=== PATIENT | female | born 1980 | race Caucasian/White ===

== ENCOUNTER 2017-07-11 15:35 | Outpatient (CLI) | payer SELFPAY ==
[2017-07-11] MEDS ORDERED: LACTATED RINGERS 500 ML IV ONE (20:30)
[2017-07-11 20:36] VITALS: BP 121/67
[2017-07-11 20:55] LABS: Bacteria,Urine 1+ /HPF (Negative); Bilirubin,Urine NEG (Negative); Blood,Urine NEG (Negative); Color,Urine Straw (Yellow); Nitrite,Urine NEG (Negative); Protein,Urine <15 mg/dL mg/dL (Negative); RBC,Urine < 1.0 /HPF (0.0-6.0); Urobilinogen,Urine < 2.0 mg/dL (<2.0)
[2017-07-11 20:56] LABS: WBC,Urine < 1.0 /HPF (0.0-6.0)
--- NOTE | 2017-07-11 22:26 | Ultrasound Report ---
FINAL REPORT EXAM: US OB > = 14 WEEKS FETUS HISTORY: NO CARE TECHNIQUE: Transabdominal sonography of the pelvis. PRIORS: None. FINDINGS: There is a single, live intrauterine in cephalic presentation. heart motion is detected and 4 chamber heart visualized. Placenta is located anterior and there is no evidence of previa. Cervical length 3.6 cm. Biometric data obtained and corresponds to an estimated gestational age of 31 weeks 4 days and an ultrasound estimated date of delivery of 08 September 2017 (it should be noted that an examination performed earlier in may yield more accurate dating). No gross anomalies are noted, including brain, heart, stomach, kidneys and urinary bladder. spine and cord insertion not adequately visualized. Amniotic fluid index is 15 cm. BPD: 7.72 cm HC: 29.01 cm AC: 26.97 cm FL: 6.21 cm Remainder of the uterus and adnexa grossly unremarkable. IMPRESSION: 1. Single, live intrauterine .
== END 2017-07-11 21:35 | disposition home or self-care (01) ==
LOC: EDSTATUS 17:45 → TRG 17:53
PROVIDERS: ATTEND Obstetrics & Gynecology
DX: O09.523 Supervision of elderly multigravida, third trimester (principal); O47.03 False labor before 37 completed weeks of gestation, third trimester; Z3A.31 31 weeks gestation of pregnancy
CPT/HCPCS: 59025; 76805; 81001

== ENCOUNTER 2017-08-27 07:53 | Inpatient (IN) | payer SELFPAY ==
[2017-08-27] MEDS ORDERED: PITOCin/NS 20 UNIT/1000ML DRIP 20 UNITS/1,000 ML BAG IV SCH (08:00)
[2017-08-27] MEDS ORDERED: PITOCin/NS 20 UNIT/1000ML DRIP 20,000 MILLIUNITS/1,000 ML BAG IV ONE ×2 (08:01→10:03)
[2017-08-27 08:52] LABS: Hematocrit 44.6 % (30.3-42.9); Hemoglobin 14.6 gm/dl (10.1-14.3); Mean Corpuscular Volume 91 fl (79-97); Red Blood Count 4.87 M/mm3 (3.65-5.03)
[2017-08-27 08:53] LABS: Basophils # (Auto) 0.1 K/mm3 (0.0-0.1); Basophils % (Auto) 0.5 % (0.0-1.8); Eosinophils # (Auto) 0.1 K/mm3 (0.0-0.4); Eosinophils % (Auto) 0.4 % (0.0-4.3); Lymphocytes # (Auto) 3.2 K/mm3 (1.2-5.4); Mean Corpuscular HGB Conc 33 % (30-34); Mean Corpuscular Hemoglobin 30 pg (28-32); Monocytes # (Auto) 0.8 K/mm3 (0.0-0.8); Monocytes % (Auto) 6.9 % (0.0-7.3); Platelet Count 211 K/mm3 (140-440); Red Cell Distribution Width 13.6 % (13.2-15.2)
[2017-08-27] MEDS ORDERED: SODIUM CHLORIDE FLUSH SYRINGE 10 ML IV PRN (10:00)
[2017-08-27] MEDS: PERCOCET 5/325 PO PRN ×2 (10:14→11:35)
--- NOTE | 2017-08-27 10:14 | History and Physical Report ---
History of Present Illness Date of examination: 08/27/17 Date of admission: 08/27/17 07:53 Chief complaint: contractions History of present illness: 37y/o @ 38+2 weeks presents in active labor with advanced cervical dilation. The patient has not received care during the . Her GBS status is unknown. States her prior pregnancies were uncomplicated Past History Past Medical History: no pertinent history Past Surgical History: no surgical history Social history: - Obstetrical History Expected Date of Delivery: 09/08/17 Actual Gestation: 38 Week(s) 3 Day(s) : 6 Para: 5 Hx # Term Pregnancies: 5 Number of Pregnancies: 0 Spontaneous Abortions: 0 Induced : 0 Number of Living Children: 5 Medications and Allergies Allergies Allergy/AdvReac Type Severity Reaction Status Date / Time No Known Allergies Allergy Unverified 06/26/13 13:32 Home Medications Medication Instructions Recorded Confirmed Last Taken Type Pnv with Ca,No.71/Iron/FA 1 tab PO DAILY 06/28/13 06/28/13 06/19/13 12:00 History [ Vitamin Tablet] Ferrous Sulfate [Feosol 325 MG tab] 325 mg PO BID #60 tablet 06/29/13 Unknown Rx Ibuprofen [Motrin] 800 mg PO TID PRN #30 tablet 06/29/13 Unknown Rx Vit-Fe Fumar-FA [ 1 each PO ONCE #30 tablet 06/29/13 Unknown Rx Vitamin] Active Meds: Active Medications Acetaminophen (Tylenol) 650 mg PO Q4H PRN PRN Reason: Pain MILD(1-3)/Fever >100.5/COLE Acetaminophen/Hydrocodone Bitart ([place] 5/325) 2 each PO Q6H PRN PRN Reason: Pain, Moderate (4-6) Bisacodyl (Dulcolax) 10 mg [place] BID PRN PRN Reason: Constipation Diphenhydramine HCl (Benadryl) 25 mg PO Q6H PRN PRN Reason: Itching Ibuprofen (Motrin) 600 mg PO Q6H KENNY Magnesium Hydroxide (Milk Of Magnesia) 30 ml PO HS PRN PRN Reason: Constipation Multi-Ingredient Ointment (Lansinoh) 1 applic TP PRN PRN PRN Reason: Sore Nipples Ondansetron HCl (Zofran) 4 mg IV Q8H PRN PRN Reason: Nausea And Vomiting Oxycodone/Acetaminophen (Percocet 5/325) 1 tab PO Q6H PRN PRN Reason: Pain, Moderate (4-6) Promethazine HCl (Phenergan) 25 mg IL Q6H PRN PRN Reason: Nausea And Vomiting Promethazine HCl (Phenergan) 25 mg PO Q6H PRN PRN Reason: Nausea And Vomiting Sodium Chloride (Sodium Chloride Flush Syringe 10 Ml) 10 ml IV PRN NR Witch Kiesha/Glycerin (Tucks Pad) 1 each TP PRN PRN PRN Reason: Hemorrhoid/cleansing/soothing Review of Systems All systems: negative Genitourinary: pelvic pain, contractions - Vital Signs Vital signs: Vital Signs Pulse BP 56 L 161/81 08/27/17 08:04 08/27/17 08:04 Temp Pulse Resp BP Pulse Ox 58 L 142/86 08/27/17 08:38 08/27/17 08:38 - Physical Exam Breasts: Positive: deferred Cardiovascular: Regular rate Lungs: Positive: Clear to auscultation Abdomen: Positive: normal appearance Results Result Diagrams: 08/28/17 01:20 Abnormal lab results 08/27/17 Range/Units 06:10 WBC 11.3 H (4.5-11.0) K/mm3 Hgb 14.6 H (10.1-14.3) gm/dl Hct 44.6 H (30.3-42.9) % All other labs normal. Assessment and Plan - Patient Problems (1) No care in current Current Visit: Yes Status: Acute Plan to address problem: admit to L&D patient did not receive adequate antibiotic coverage secondary to precipitous labor (2) Active labor at term Onset Date: 06/28/13 Current Visit: No Status: Acute
--- NOTE | 2017-08-27 10:19 | Procedure Note ---
OB Delivery Note - Delivery Date of Delivery: 08/27/17 Surgeon: PREM REDDING Estimated blood loss: 100cc - Vaginal Delivery presentation: vertex Delivery position: OA Intrapartum events: no care, precipitous labor- <3hr Delivery monitor: external FHT Route of delivery: Delivery placenta: spontaneous Delivery cord: 3 umbilical vessels Episiotomy: none Delivery laceration: none Anesthesia: none Delivery comments: Patient presented to triage 8cm dilated and quickly progressed. She pushed to deliver a liveborn male with apgars of 8/9. The was placed on the patient's abdomen prior to cord clamp. After pulsation ceased, the cord was clamped and cut. The placenta delivered spontaneously intact with a 3VC. No lacerations noted. Weight 5lbs 15oz. EBL 100ml - A at 1 minute: 8 at 5 minutes: 9 Gender: Male (weight 5lbs 15oz)
[2017-08-27] MEDS ORDERED: MILK OF MAGNESIA PO PRN (10:30)
[2017-08-27] MEDS ORDERED: PHENERGAN PR PRN (10:30)
[2017-08-27] MEDS: NORCO 5/325 PO PRN ×2 (10:30→20:55)
[2017-08-27] MEDS ORDERED: LANSINOH TP PRN (10:30)
[2017-08-27] MEDS ORDERED: BENADRYL PO PRN (10:30)
[2017-08-27] MEDS ORDERED: PHENERGAN PO PRN (10:30)
[2017-08-27] MEDS ORDERED: ZOFRAN IV PRN (10:30)
[2017-08-27] MEDS ORDERED: DULCOLAX PR PRN (10:30)
[2017-08-27] MEDS ORDERED: TYLENOL PO PRN (10:30)
[2017-08-27] MEDS ORDERED: TUCKS PAD TP PRN (10:30)
[2017-08-27] MEDS: MOTRIN PO SCH (11:35)
[2017-08-28] MEDS: MOTRIN PO SCH ×4 (00:30→19:30)
[2017-08-28 01:42] LABS: Hematocrit 33.6 % (30.3-42.9); Hemoglobin 11.3 gm/dl (10.1-14.3)
--- NOTE | 2017-08-28 08:27 | Progress Note ---
Assessment and Plan A/P PPD #1 precipitous no care BP elevated will draw labs stat for PIH ( suresh reports high BP in past) continue routine care close attention to BP H/H 14--11 Subjective - Subjective Date of service: 08/28/17 Principal diagnosis: no care Patient reports: appetite normal, voiding normally, pain well controlled, flatus , ambulating normally [place]: doing well Objective - Vital Signs Latest vital signs: Vital Signs Temp Pulse Resp BP BP Pulse Ox 08/28/17 00:30 18 08/28/17 00:00 98.2 F 62 20 140/87 08/27/17 20:55 18 08/27/17 20:10 98.4 F 73 20 142/72 08/27/17 17:05 97.3 F L 69 22 133/73 98 08/27/17 10:30 97.8 F 64 141/74 08/27/17 08:38 58 L 142/86 08/27/17 08:33 57 L 157/87 Intake and Output 08/27/17 08/28/17 08/28/17 23:59 07:59 15:59 Intake Total 240 240 Output Total 1200 Balance -960 240 Intake: Oral 240 240 Output: Urine 1200 Void 1200 Other: Total, Intake Amount 240 240 Total, Output Amount 400 # Voids Void 1 - Exam Breasts: Present: normal Cardiovascular: Present: Regular rate, Normal S1 Lungs: Present: Clear to auscultation, Normal air movement Abdomen: Present: normal appearance, soft, normal bowel sounds. Absent: distention, tenderness, guarding Vulva: both: normal Uterus: Present: normal, firm, fundal height below umbilicus. Absent: bogginess , tenderness Extremities: Present: normal Deep Tendon Reflex Grade: Normal +2 - Labs Labs: Abnormal lab results 08/27/17 Range/Units 06:10 WBC 11.3 H (4.5-11.0) K/mm3 Hgb 14.6 H (10.1-14.3) gm/dl Hct 44.6 H (30.3-42.9) %
[2017-08-28 10:03] LABS: Hematocrit 34.6 % (30.3-42.9); Hemoglobin 11.8 gm/dl (10.1-14.3); Mean Corpuscular HGB Conc 34 % (30-34); Mean Corpuscular Hemoglobin 31 pg (28-32); Mean Corpuscular Volume 90 fl (79-97); Platelet Count 170 K/mm3 (140-440); Red Blood Count 3.82 M/mm3 (3.65-5.03); Red Cell Distribution Width 13.8 % (13.2-15.2)
[2017-08-28 10:05] LABS: Alanine Aminotransferase 34 units/L (7-56); Uric Acid 5.5 mg/dL (3.5-7.6)
[2017-08-28 11:23] LABS: Bilirubin,Urine NEG (Negative); Blood,Urine LG (Negative); Color,Urine Yellow (Yellow); Mucus,Urine FEW /HPF; Protein,Urine <15 mg/dL mg/dL (Negative); RBC,Urine > 182.0 /HPF (0.0-6.0); Urobilinogen,Urine < 2.0 mg/dL (<2.0)
[2017-08-28 11:28] LABS: Amphetamine Screen,Urine PRESUMPTIVE NEGATIVE; Benzodiazepines Screen,Urine PRESUMPTIVE NEGATIVE; Cannabinoid Screen,Urine PRESUMPTIVE NEGATIVE; Cocaine Screen,Urine PRESUMPTIVE NEGATIVE; Methadone Screen,Urine PRESUMPTIVE NEGATIVE; Opiate Screen,Urine PRESUMPTIVE NEGATIVE
[2017-08-28] MEDS ORDERED: Fluarix Quad 2017-2018(36 MOS+ IM ONE (12:00)
[2017-08-28] MEDS: NORCO 5/325 PO PRN (13:00)
[2017-08-28] MEDS ORDERED: MAGNESIUM SULFATE 40GM/1000ML 40 GM/1,000 ML BAG IV SCH (18:00)
[2017-08-28] MEDS ORDERED: MAGNESIUM SULFATE IV ONE (18:00)
[2017-08-28] MEDS ORDERED: MAGNESIUM SULFATE 4GM/100ML 4 GM/100 ML BAG IV ONE (18:09)
[2017-08-28] MEDS ORDERED: LACTATED RINGERS 1,000 ML ONE (18:13)
[2017-08-28] MEDS ORDERED: MAGNESIUM SULFATE 40 GM in NACL 0.9% 1000 ML 1,000 ML IV SCH (20:00)
[2017-08-29] MEDS: MOTRIN PO SCH ×3 (03:49→19:09)
[2017-08-29] MEDS ORDERED: BOOSTRIX IM ONE (06:00)
[2017-08-29] MEDS ORDERED: LACTATED RINGERS 1,000 ML ONE (07:49)
--- NOTE | 2017-08-29 08:10 | Progress Note ---
Assessment and Plan O: VSS AF BP: 120-130/70 Magnesium Sulfate @ 2gm/hr A: Stable PP Day 1 S/P No care P: Discontinue Magnesium in 24 hrs Subjective - Subjective Date of service: 08/29/17 Principal diagnosis: no care Patient reports: appetite normal, voiding normally, pain well controlled, ambulating normally, other (c/o frontal headace since yesterday. Denies blurred vision or epigastric pain. Requesting that Magnesium be discontinued. Also c/o afterbirth pains) : doing well, nursing well Objective - Vital Signs Latest vital signs: Vital Signs Temp Pulse Resp BP BP Pulse Ox 08/29/17 06:20 98.8 F 76 18 128/73 08/29/17 04:05 98.2 F 67 18 137/80 08/29/17 01:59 69 131/70 08/29/17 00:00 98.2 F 72 20 120/70 08/28/17 21:51 98.2 F 76 20 115/59 08/28/17 20:05 98.2 F 73 20 134/71 08/28/17 18:40 69 139/76 08/28/17 18:35 77 138/74 08/28/17 18:30 72 140/82 08/28/17 18:25 72 128/74 08/28/17 18:20 75 137/72 08/28/17 12:31 97.8 F 66 18 154/80 98 Intake and Output 08/28/17 08/29/17 08/29/17 22:59 06:59 14:59 Intake Total 440 400 Output Total 600 800 Balance -160 -400 Intake: Oral 440 400 Output: Urine 600 800 Void 600 800 Other: Total, Intake Amount 200 200 Total, Output Amount 200 400 # Voids Void 1 Output 1400cc - Exam Breasts: Present: Abdomen: Present: normal appearance, soft Uterus: Present: normal, firm, fundal height below umbilicus (2 below U, ML). Absent: bogginess, tenderness Extremities: Present: normal. Absent: edema Deep Tendon Reflex Grade: Dull/Diminished +1 - Labs Labs: Abnormal lab results 08/28/17 08/28/17 08/29/17 Range/Units 09:32 11:00 00:33 Creatinine 0.5 L (0.7-1.2) mg/dL Magnesium 4.70 H (1.7-2.3) mg/dL AST 51 H (5-40) units/L Lactate Dehydrogenase 344 H (91-180) units/L Urine WBC (Auto) 48.0 H (0.0-6.0) /HPF 08/29/17 Range/Units 04:50 Creatinine (0.7-1.2) mg/dL Magnesium 4.80 H (1.7-2.3) mg/dL AST (5-40) units/L Lactate Dehydrogenase (91-180) units/L Urine WBC (Auto) (0.0-6.0) /HPF
[2017-08-29] MEDS ORDERED: FIORICET PO PRN (09:00)
[2017-08-29] MEDS ORDERED: LACTATED RINGERS 1,000 ML IV SCH (11:00)
[2017-08-30] MEDS: MOTRIN PO SCH ×3 (05:50→05:55)
[2017-08-30] MEDS: NORCO 5/325 PO PRN (05:55)
[2017-08-30] MEDS ORDERED: BOOSTRIX IM ONE (06:00)
--- NOTE | 2017-08-30 07:43 | Progress Note ---
Assessment and Plan A: PPD#3 s/p ; No care; Chronic HTN vs PIH s/p 24 hours of magnesium sulfate- blood pressures below severe range P: Follow up lower extremity doppler but after patient interview lower suspicion of acute DVT Discharge later today if doppler negative with follow up in 1 week for blood pressure check Subjective - Subjective Date of service: 08/30/17 Principal diagnosis: no care Interval history: Pt with left calf pain overnight and a LLE doppler ordered but has not yet been performed. Pt reports that this pain has been present in the same place for the entire and worsens as her abdomen enlarges during the . This has happened in each of her previous pregnancies as well, and improves when she is not . She does have lower extremity varices. She denies headache or blurry vision. She is asking to go home. Patient reports: appetite normal, voiding normally, pain well controlled, ambulating normally, no nauseated [place]: doing well Objective - Vital Signs Latest vital signs: Vital Signs Temp Pulse Resp BP BP Pulse Ox 08/30/17 04:15 98.2 F 66 20 124/74 08/30/17 00:00 98.7 F 75 18 130/73 08/29/17 18:28 97.9 F 82 20 144/84 98 08/29/17 16:23 97.8 F 67 20 131/77 98 08/29/17 14:26 97.9 F 70 18 120/81 97 08/29/17 12:29 97.7 F 69 20 138/81 96 08/29/17 10:04 98.0 F 69 20 117/71 97 Intake and Output 08/29/17 08/30/17 08/30/17 22:59 06:59 14:59 Intake Total 480 120 Balance 480 120 Intake: Oral 480 120 Other: Total, Intake Amount 240 120 # Voids Void 1 1 - Exam Breasts: Present: deferred Cardiovascular: Present: Regular rate Lungs: Present: Clear to auscultation Abdomen: Present: soft Uterus: Present: fundal height below umbilicus Extremities: Present: tenderness (left calf ), other (Bilateral lower extremity varices ) - Labs Labs: Abnormal lab results 08/29/17 08/29/17 Range/Units 11:44 18:28 Magnesium 5.60 H 4.20 H (1.7-2.3) mg/dL
[2017-08-30 07:44] LABS: Hematocrit 36.9 % (30.3-42.9); Hemoglobin 12.2 gm/dl (10.1-14.3); Mean Corpuscular HGB Conc 33 % (30-34); Mean Corpuscular Hemoglobin 30 pg (28-32); Mean Corpuscular Volume 92 fl (79-97); Platelet Count 218 K/mm3 (140-440); Red Blood Count 4.02 M/mm3 (3.65-5.03); Red Cell Distribution Width 13.9 % (13.2-15.2)
--- NOTE | 2017-08-30 07:49 | Discharge Summary ---
Providers - Providers Date of Admission: 08/27/17 07:53 Date of discharge: 08/30/17 Attending physician: PREM REDDING Primary care physician: PREM REDDING Hospitalization Reason for admission: active labor Delivery: Procedure details: Please see delivery note. Episiotomy: none Laceration: none Other procedures: none complications: none Discharge diagnosis: IUP at term delivered [place] baby: male Hospital course: Patient was admitted in active labor and went on to deliver a viable male via spontaneous vaginal delivery. During her course, the patient had elevated blood pressures and was given magnesium sulfate for 24 hours. The patient also developed headache that resolved with Fioricet. She also complained of left calf pain which was evaluated with lower extremity Doppler and was negative. By day #3 the patient met discharge criteria. She will follow-up in the office in 1 week for blood pressure check and desires ParaGard IUD for contraception. Condition at discharge: Stable Disposition: DC-01 TO HOME OR SELFCARE - Discharge Diagnoses (1) PIH ( induced hypertension) Status: Acute Qualifiers: Trimester: third trimester Qualified Code(s): O13.3 - Gestational [ -induced] hypertension without significant proteinuria, third trimester (2) Advanced maternal age (AMA) in Status: Acute (3) No care in current Status: Acute Qualifiers: Trimester: third trimester Qualified Code(s): O09.33 - Supervision of with insufficient care, third trimester (4) Active labor at term Status: Acute (5) Status post normal vaginal delivery Status: Acute Plan - Provider Discharge Summary Activity: routine, no sex for 6 weeks, no heavy lifting 4 weeks, no strenuous exercise Diet: routine Instructions: routine Additional instructions: [] Smoking cessation referral if applicable(refer to patient education folder for contact #) [] Refer to [facility]'s [facility] Booklet Call your doctor immediately for: * Fever > 100.5 * Heavy vaginal bleeding ( >1 pad per hour) * Severe persistent headache * Shortness of breath * Reddened, hot, painful area to leg or breast * Drainage or odor from incision. * Keep incision clean and dry at all times and follow doctor's instructions regarding bathing/showering Por favor, saque raymond rohit para chequear laurent precion en la oficina. - Follow up plan Follow up: PREM REDDING MD [Primary Care Provider] - 7 Days
[2017-08-30 08:03] VITALS: BP 131/83
[2017-08-30 08:05] LABS: Alanine Aminotransferase 90 units/L (7-56); Uric Acid 6.5 mg/dL (3.5-7.6)
== END 2017-08-30 11:10 | disposition home or self-care (01) | DRG 775 ==
LOC: LD 07:53 → OB 10:45
PROVIDERS: ADMIT Obstetrics & Gynecology; ATTEND Obstetrics & Gynecology
PROC: 10E0XZZ Delivery of Products of Conception, External Approach (ICD-10-PCS; principal; 2017-08-27)
PROC: 3E0234Z Introduction of Serum, Toxoid and Vaccine into Muscle, Percutaneous Approach (ICD-10-PCS; 2017-08-28)
DX: O13.4 Gestational [pregnancy-induced] hypertension without significant proteinuria, complicating childbirth (principal); Z3A.38 38 weeks gestation of pregnancy; Z37.0 Single live birth; O09.523 Supervision of elderly multigravida, third trimester; O09.33 Supervision of pregnancy with insufficient antenatal care, third trimester; Z23 Encounter for immunization
CPT/HCPCS: 36415; 80307; 81001; 82565; 83615; 83735; 84450; 84460; 84550; 85014; 85018; 85025; 85027; 86592; 86706; 86762; 86850; 86900; 86901; 87806; 90471; 90686; 90715; 99211; G0463; J2590; J3475; J7030; J7120